=== PATIENT | female | born 1990 | race Caucasian/White ===

== ENCOUNTER 2016-07-27 15:51 | Inpatient (IN) | payer MEDICAID, OTHER ==
[2016-07-27] VITALS (7 sets, daily range): BP systolic 104–145; BP diastolic 58–85; PULSE 99–136; RESP 17–28; TEMP 97.6–99; O2SAT 99–100
[~2016-07-27 15:51] MED LIST: Z.0.NO CURRENT MEDS
[2016-07-27] MEDS ORDERED: SODIUM CHLOR 0.9% 1000 ML INJ 100 ML IV ONE (16:12)
[2016-07-27] MEDS ORDERED: SODIUM CHLOR 0.9% 1000 ML INJ 1,000 ML IV ONE ×2 (16:12)
[2016-07-27 16:37] LABS: AUTOMATED NEUTROPHIL # 4.5 TH/MM3 (1.8-7.7); BASOPHIL % 0.3 % (0.0-2.0); EOSINOPHIL # 0.1 TH/MM3 (0-0.4); EOSINOPHIL % 2.7 % (0.0-4.0); HEMATOCRIT 36.3 % (35.0-46.0); HEMO FLAGS DIFF FINAL; LYMPH % 13.1 % (9.0-44.0); LYMPHOCYTE # 0.7 TH/MM3 (1.0-4.8); MEAN CELL VOLUME 91.5 FL (80.0-100.0); MEAN CORPUSCULAR HEMOGLOBIN 32.9 PG (27.0-34.0); MEAN CORPUSCULAR HGB CONC 35.9 % (32.0-36.0); MONO % 0.4 % (0.0-8.0); NEUT % 83.5 % (16.0-70.0); PLATELET COUNT 176 TH/MM3 (150-450); RED BLOOD COUNT 3.96 MIL/MM3 (4.00-5.30); RED CELL DISTRIBUTION WIDTH 13.8 % (11.6-17.2); WHITE BLOOD COUNT 5.4 TH/MM3 (4.0-11.0)
[2016-07-27 16:50] LABS: BACTERIA, URINE MOD /hpf; BLOOD, URINE SMALL (NEG); GLUCOSE,URINE NEG (NEG); KETONE, URINE NEG (NEG); MUCUS URINE FEW /lpf (OCC); SQUAMOUS EPITHELIAL CELL URINE 1 /hpf (0-5); URINE COLOR YELLOW (YELLW/STRAW)
[2016-07-27 16:53] LABS: COMMENT (UR) CATH-CULTURE IND; CULTURE IF INDICATED CATH CULTURE IND; NITRITE,URINE POS (NEG)
[2016-07-27] MEDS ORDERED: PIPERACIL-TAZO 4.5 GM PREMIX 100 ML IV ONE (17:00)
[2016-07-27 17:03] LABS: ANION GAP 9 MEQ/L (5-15); AST (GOT) 14 U/L (15-37); BICARBONATE 24.2 MEQ/L (21.0-32.0); BLOOD UREA NITROGEN 8 MG/DL (7-18); CHLORIDE 104 MEQ/L (98-107); GLOMERULAR FILTRATION RATE 112 ML/MIN (>89); POTASSIUM 3.7 MEQ/L (3.5-5.1); SODIUM (NA) 137 MEQ/L (136-145)
[2016-07-27 17:07] LABS: ALKALINE PHOSPHATASE 81 U/L (45-117); ALT (GPT) 11 U/L (10-53); TOTAL BILIRUBIN ADULT 0.3 MG/DL (0.2-1.0)
--- NOTE | 2016-07-27 17:12 | PD ---
HPI Chief Complaint: Seizure Time Seen by Provider: 16:08 Travel History International Travel<30 days: No Contact w/Intl Traveler<30days: No Traveled to known affect area: No History of Present Illness HPI 26-year-old female came to the emergency room with history of seizure-like activity that was witnessed by her . This happened as per him about 15- 20 minutes ago. Patient does not have history of seizures. She says she was feeling fine this morning. [place] the [place] she suddenly started to get chills and wanted to go home because she wasn't feeling bad. But she was in the car and was driving she had these shaking episodes were as per him she was not responding. It lasted for about a minute. Patient is 20 weeks and says that she was diagnosed with UTI about 3 days ago but not treated. She has been nauseous but no vomiting. Patient was tachycardic in the triage. She is otherwise a healthy person. No history of cramps or spotting. PFSH Past Medical History Narrative Medical List of her past medical, surgical, social and family history was reviewed from the nursing note. Asthma: Yes Anxiety: Yes Depression: Yes Diabetes: No Diminished Hearing: No Headaches: Yes ?: Menopausal: No : 2 Para: 1 Miscarriage: 1 Past Surgical History Surgical History: No Previous Surgery Social History Alcohol Use: No Tobacco Use: No Substance Use: No Allergies-Medications (Allergen,Severity, Reaction): Coded Allergies: No Known Allergies (Verified , 08/07/11) Comments List of her allergies reviewed from the nursing note. Reported Meds & Prescriptions Reported Meds & Active Scripts Active Reported Mapap (Acetaminophen) 325 Mg Tab 650 Mg PO DAILY PRN Calna ( Vitamin) 1 Tab Tab 1 Tab PO HS Narrative Medication List of her home medications reviewed from the nursing note. Review of Systems Except as stated in HPI: all other systems reviewed are Neg Physical Exam Narrative GENERAL: Awake, alert, anxious, moderate distress SKIN: Focused skin assessment warm/dry. HEAD: Atraumatic. Normocephalic. EYES: Pupils equal and round. No scleral icterus. No injection or drainage. ENT: No nasal bleeding or discharge. Dry mucous membrane NECK: Trachea midline. No JVD. CARDIOVASCULAR: Regular rate and rhythm. Tachycardia. No murmur appreciated. RESPIRATORY: No accessory muscle use. Clear to auscultation. Breath sounds equal bilaterally. GASTROINTESTINAL: Abdomen soft, non-tender, nondistended. Hepatic and splenic margins not palpable. MUSCULOSKELETAL: No obvious deformities. No clubbing. No cyanosis. No edema. NEUROLOGICAL: Awake and alert. No obvious cranial nerve deficits. Motor grossly within normal limits. Normal speech. PSYCHIATRIC: Appropriate mood and affect; insight and judgment normal. Data Data Last Documented VS Vital Signs Date Time Temp Pulse Resp B/P Pulse Ox O2 Delivery O2 Flow Rate FiO2 07/27/16 16:39 99 Room Air 07/27/16 16:38 101 18 106/59 07/27/16 16:08 98.3 Orders Complete Blood Count With Diff (07/27/16 16:12) Comprehensive Metabolic Panel (07/27/16 16:12) Lactic Acid Sepsis Protocol (07/27/16 16:12) Urinalysis - C+S If Indicated (07/27/16 16:12) Blood Culture (07/27/16 16:12) Blood Glucose (07/27/16 16:12) Ecg Monitoring (07/27/16 16:12) Iv Access Insert/Monitor (07/27/16 16:12) Oximetry (07/27/16 16:12) Oxygen Administration (07/27/16 16:12) Sodium Chlor 0.9% 1000 Ml Inj (Ns 1000 M (07/27/16 16:12) Sodium Chlor 0.9% 1000 Ml Inj (Ns 1000 M (07/27/16 16:12) Sodium Chlor 0.9% 1000 Ml Inj (Ns 1000 M (07/27/16 16:12) Urine Culture (07/27/16 16:20) Piperacil-Tazo 4.5 Gm Premix (Zosyn 4.5 (07/27/16 17:00) Admit Order (Ed Use Only) (07/27/16 17:12) Labs Laboratory Tests Test 07/27/16 07/27/16 16:10 16:20 Sodium Level 137 MEQ/L Potassium Level 3.7 MEQ/L Chloride Level 104 MEQ/L Carbon Dioxide Level 24.2 MEQ/L Anion Gap 9 MEQ/L Blood Urea Nitrogen 8 MG/DL Creatinine 0.64 MG/DL Estimat Glomerular Filtration 112 ML/MIN Rate Random Glucose 89 MG/DL Lactic Acid Level 2.1 mmol/L Calcium Level 8.8 MG/DL Total Bilirubin 0.3 MG/DL Aspartate Amino Transf 14 U/L (AST/SGOT) Alanine Aminotransferase 11 U/L (ALT/SGPT) Alkaline Phosphatase 81 U/L Total Protein 6.4 GM/DL Albumin 2.9 GM/DL White Blood Count 5.4 TH/MM3 Red Blood Count 3.96 MIL/MM3 Hemoglobin 13.0 GM/DL Hematocrit 36.3 % Mean Corpuscular Volume 91.5 FL Mean Corpuscular Hemoglobin 32.9 PG Mean Corpuscular Hemoglobin 35.9 % Concent Red Cell Distribution Width 13.8 % Platelet Count 176 TH/MM3 Mean Platelet Volume 8.4 FL Neutrophils (%) (Auto) 83.5 % Lymphocytes (%) (Auto) 13.1 % Monocytes (%) (Auto) 0.4 % Eosinophils (%) (Auto) 2.7 % Basophils (%) (Auto) 0.3 % Neutrophils # (Auto) 4.5 TH/MM3 Lymphocytes # (Auto) 0.7 TH/MM3 Monocytes # (Auto) 0.0 TH/MM3 Eosinophils # (Auto) 0.1 TH/MM3 Basophils # (Auto) 0.0 TH/MM3 CBC Comment DIFF FINAL Differential Comment Urine Color YELLOW Urine Turbidity HAZY Urine pH 6.0 Urine Specific [place] 1.019 Urine Protein 30 mg/dL Urine Glucose (UA) NEG mg/dL Urine Ketones NEG mg/dL Urine Occult Blood SMALL Urine Nitrite POS Urine Bilirubin NEG Urine Urobilinogen LESS THAN 2.0 MG/DL Urine Leukocyte Esterase LARGE Urine RBC 22 /hpf Urine WBC /hpf Urine WBC Clumps MANY Urine Squamous Epithelial 1 /hpf Cells Urine Bacteria MOD /hpf Urine Mucus FEW /lpf Microscopic Urinalysis Comment CATH-CULTURE IND MDM Medical Decision Making Medical Screen Exam Complete: Yes Emergency Medical Condition: Yes Medical Record Reviewed: Yes Differential Diagnosis Sepsis, UTI, new onset seizure Narrative Course 5:03 PM CBC is back which appears to be within acceptable limits. Lactic acid is elevated. UA was strongly positive for UTI. She was given 3 L of fluid initially and I have ordered Zosyn for her as well. I would like to admit her at this point. Given the fact she is 20 weeks I would like her to be admitted under OB care. I spoke with the OB hospitalist Dr. Nunez who has accepted this patient. Critical Care Narrative Aggregate critical care time was 30 minutes. Time to perform other separately billable procedures was not included in the critical care time. My time did not include minutes spent treating any other patients simultaneously or on activities that did not directly contribute to the patient's treatment. The services I provided to this patient were to treat and/or prevent clinically significant deterioration that could result in: Sepsis, sepsis protocol I provided critical care services requiring my management, as noted below: Chart data review, documentation time, medication orders and management, vital sign assessments/reviewing monitor data, ordering and reviewing lab tests, ordering and interpreting/reviewing x-rays and diagnostic studies, care of the patient and discussion of the patient with the admitting physicians. Procedures EKG Prior to Arrival: No Diagnosis Primary Impression: Sepsis Qualified Code: A41.9 - Sepsis, due to unspecified organism Additional Impressions: UTI (urinary tract infection) Qualified Code: N39.0 - Urinary tract infection without hematuria, site unspecified Qualified Code: Z3A.20 - 20 weeks gestation of Admitting Information Admitting Physician Requests: Valarie Manuel MD Jul 27, 2016 17:12
[2016-07-27 18:29] LABS: LACTIC ACID GHOST NOT REPORTABLE
[2016-07-27] MEDS ORDERED: MAPA325T PO (19:21)
[2016-07-27] MEDS ORDERED: CALNTAB PO (19:21)
[2016-07-27] MEDS ORDERED: SODIUM CHLORIDE 0.9% FLUSH 10 ML FLUSH IV FLUSH PRN (20:30)
[2016-07-27] MEDS ORDERED: ALUMINUM/MAGNESIUM/SIMETH 30 ML CUP PO PRN (20:30)
[2016-07-27] MEDS ORDERED: ONDANSETRON HCL 4 MG/2 ML VIAL IV PRN (20:30)
[2016-07-27] MEDS: SODIUM CHLORIDE 0.9% FLUSH 10 ML FLUSH IV FLUSH SCH (21:00)
--- NOTE | 2016-07-27 22:00 | HHI.HP ---
HPI Chief Complaint chills, fever, ?seizure Date Seen: Jul 27, 2016 Time Seen: 19:32 Travel History International Travel<30 Days: No Contact w/Intl Traveler<30Days: No Known Affected Area: No History of Present Illness HPI This is a 26y/o at 19w5d, with LUPE 12/16/16 who was brought to the ED by her due to "seizure like" activity. Per history they were at the mall when pt started feeling "shaking/chills," while in the car her states he noticed she was not immediately responsive and was flailing her arms about. She denies any loss of bladder control. Ms. Lira reports + movements , no vaginal bleeding or leakage of fluid. care with Aslhee Manjarrez, no records available for review, complicated by: 1. recent UTI, no treatment 2. h/o pyelonephritis outside of Para: 1 : 2 Miscarriage: 0 : 0 History Past Medical History Narrative Medical H/o Pyelonephritis in 07/2010 Obstetric History Obstetric History 05/14/2010 40w5d , 7lb8oz "Nidia" Past Surgical History Surgical History: No Previous Surgery Family History Family History: Negative Social History Alcohol Use: No Tobacco Use: No Substance Abuse: No Allergies-Medications (Allergen,Severity, Reaction): Coded Allergies: No Known Allergies (Verified , 08/07/11) Home Meds Reported Medications Acetaminophen (Mapap)325 Mg [id number] Mg PO DAILY PRN (HEADACHE) Ref 0 07/27/16 Vitamin (Calna)1 Tab Tab1 Tab PO HS 07/27/16 Review of Systems Except as stated in HPI: all other systems reviewed are Neg Physical Exam Vital Signs Date Time Temp Pulse Resp B/P Pulse Ox O2 Delivery O2 Flow Rate FiO2 07/27/16 20:45 98.9 127 18 104/58 100 Room Air 07/27/16 17:27 123 20 123/85 99 Room Air 07/27/16 16:39 99 Room Air 07/27/16 16:39 99 Room Air 07/27/16 16:38 101 18 106/59 99 Room Air 07/27/16 16:10 114 18 93 Room Air 07/27/16 16:08 98.3 99 18 145/64 100 07/27/16 15:55 99.0 122 28 99 Room Air Narrative GENERAL: Well-nourished, well-developed patient. SKIN: Warm and dry. HEAD: Normocephalic and atraumatic. EYES: No scleral icterus. No injection or drainage. ENT: No nasal drainage noted. Mucous membranes pink. Airway patent. NECK: Supple, trachea midline. No JVD. CARDIOVASCULAR: Regular rate and rhythm without murmurs, gallops, or rubs. RESPIRATORY: Breath sounds equal bilaterally. No accessory muscle use. BREASTS: Bilateral exam showed no masses , no retractions, no nipple discharge. ABDOMEN/GI: Abdomen soft, non-tender, bowel sounds present, no rebound, no guarding; fundal height 20cm GENITOURINARY: VE deferred] EXTREMITIES: No cyanosis or edema. BACK: Nontender without obvious deformity. No CVA tenderness. NEUROLOGICAL: Awake and alert. Motor and sensory grossly within normal limits. Five out of 5 muscle strength in all muscle groups. Normal speech. No fever, + tachycardia, + lactic acid Data Data Vital Signs Reviewed: Yes Orders Complete Blood Count With Diff (07/27/16 16:12) Comprehensive Metabolic Panel (07/27/16 16:12) Lactic Acid Sepsis Protocol (07/27/16 16:12) Urinalysis - C+S If Indicated (07/27/16 16:12) Blood Culture (07/27/16 16:12) Blood Glucose (07/27/16 16:12) Ecg Monitoring (07/27/16 16:12) Iv Access Insert/Monitor (07/27/16 16:12) Oximetry (07/27/16 16:12) Oxygen Administration (07/27/16 16:12) Sodium Chlor 0.9% 1000 Ml Inj (Ns 1000 M (07/27/16 16:12) Sodium Chlor 0.9% 1000 Ml Inj (Ns 1000 M (07/27/16 16:12) Sodium Chlor 0.9% 1000 Ml Inj (Ns 1000 M (07/27/16 16:12) Urine Culture (07/27/16 16:20) Piperacil-Tazo 4.5 Gm Premix (Zosyn 4.5 (07/27/16 17:00) Admit Order (Ed Use Only) (07/27/16 17:12) Lactic Acid (07/27/16 18:15) Admit To Inpatient (07/27/16 ) Diet Regular Basic (07/27/16 Dinner) Vital Signs (Adult) WILBERT.W3G-DDQSS AWAKE (07/27/16 20:19) Heart WILBERT.QSHIFT (07/27/16 20:19) Activity Oob Ad Gwendolyn (07/27/16 20:19) Acetaminophen (Tylenol) (07/27/16 20:30) Jmjchayj-Bsh-Vzwio-Iron Prenat (Stuartna (07/28/16 09:00) Docusate Sodium (Colace) (07/28/16 09:00) Al-Mag Hy-Si 40-40-4 Mg/Ml Liq (Mag-Al P (07/27/16 20:30) Sodium Chloride 0.9% Flush (Ns Flush) (07/27/16 21:00) Sodium Chloride 0.9% Flush (Ns Flush) (07/27/16 20:30) Ondansetron Inj (Zofran Inj) (07/27/16 20:30) Inpatient Certification (07/27/16 ) Piperacil-Tazo 4.5 Gm Premix (Zosyn 4.5 (07/28/16 00:00) Labs Laboratory Tests Test 07/27/16 07/27/16 07/27/16 16:10 16:20 18:20 White Blood Count 5.4 Red Blood Count 3.96 Hemoglobin 13.0 Hematocrit 36.3 Mean Corpuscular Volume 91.5 Mean Corpuscular Hemoglobin 32.9 Mean Corpuscular Hemoglobin 35.9 Concent Red Cell Distribution Width 13.8 Platelet Count 176 Mean Platelet Volume 8.4 Neutrophils (%) (Auto) 83.5 Lymphocytes (%) (Auto) 13.1 Monocytes (%) (Auto) 0.4 Eosinophils (%) (Auto) 2.7 Basophils (%) (Auto) 0.3 Neutrophils # (Auto) 4.5 Lymphocytes # (Auto) 0.7 Monocytes # (Auto) 0.0 Eosinophils # (Auto) 0.1 Basophils # (Auto) 0.0 CBC Comment DIFF FINAL Differential Comment Sodium Level 137 Potassium Level 3.7 Chloride Level 104 Carbon Dioxide Level 24.2 Anion Gap 9 Blood Urea Nitrogen 8 Creatinine 0.64 Estimat Glomerular Filtration 112 Rate Random Glucose 89 Lactic Acid Level 2.1 1.1 Calcium Level 8.8 Total Bilirubin 0.3 Aspartate Amino Transf 14 (AST/SGOT) Alanine Aminotransferase 11 (ALT/SGPT) Alkaline Phosphatase 81 Total Protein 6.4 Albumin 2.9 Urine Color YELLOW Urine Turbidity HAZY Urine pH 6.0 Urine Specific [place] 1.019 Urine Protein 30 Urine Glucose (UA) NEG Urine Ketones NEG Urine Occult Blood SMALL Urine Nitrite POS Urine Bilirubin NEG Urine Urobilinogen LESS THAN 2.0 Urine Leukocyte Esterase LARGE Urine RBC 22 Urine WBC Urine WBC Clumps MANY Urine Squamous Epithelial 1 Cells Urine Bacteria MOD Urine Mucus FEW Microscopic Urinalysis Comment CATH-CULTURE IND Date/Time Procedure Status Source Growth 07/27/16 16:20 Urine Culture Received Urine Catheterized Urine Pending 07/27/16 16:19 Aerobic Blood Culture Received Blood Peripheral Pending 07/27/16 16:19 Anaerobic Blood Culture Received Blood Peripheral Pending Assessment/Plan Problem List: (1) Sepsis (2) UTI (urinary tract infection) (3) Assessment and Plan This is a 26y/o at 19w5d with urosepsis. -admit for IV antibiotics -Doppler q shift -IV zosyn -tylenol for pain -blood and urine culture pending -will need at least 14 days of oral antibiotics at d/c based on urine culture results Discharge Planning D/c in 1-2 days Natalie Black MD Jul 27, 2016 22:00
[2016-07-27] MEDS: PIPERACIL-TAZO 4.5 GM PREMIX 100 ML IV SCH (23:58)
[2016-07-28] VITALS: BP 97/50; PULSE 120; RESP 16; TEMP 98; O2SAT 98
[2016-07-28 04:00] VITALS: BP 90/52; PULSE 105; RESP 16; TEMP 96.6; O2SAT 97
[2016-07-28] MEDS: PIPERACIL-TAZO 4.5 GM PREMIX 100 ML IV SCH ×3 (05:57→18:10)
[2016-07-28 08:00] VITALS: BP 94/55; PULSE 91; RESP 15; TEMP 98; O2SAT 100
[2016-07-28] MEDS ORDERED: MULTIVIT/MIN/PREN/FOL AC/IRON PRENATAL TAB PO SCH (09:00)
[2016-07-28] MEDS ORDERED: DOCUSATE SODIUM 100 MG CAP PO SCH (09:00)
[2016-07-28] MEDS: SODIUM CHLORIDE 0.9% FLUSH 10 ML FLUSH IV FLUSH SCH ×2 (09:00→18:12)
--- NOTE | 2016-07-28 09:57 | PD.OB.ANTE ---
Subjective Diagnosis: (1) Sepsis Diagnosis: Principal (2) UTI (urinary tract infection) Diagnosis: Principal (3) Interval History GARNETT FEEDER antepartum Note HD#2 This is a 26y/o , LUPE 12/16/16 at 19w6d with urosepsis with maternal tachycardia and elevated lactic acid. She was started on Zosyn. Overnight she tolerated a regular diet with pulse now in the 90's. S: Pt states she is feeling significantly better, good appetite. Objective Vital Signs Vital Signs Date Time Temp Pulse Resp B/P Pulse Ox O2 Delivery O2 Flow Rate FiO2 07/28/16 08:00 98.0 91 15 94/55 100 07/28/16 04:00 96.6 105 16 90/52 97 07/28/16 00:00 98.0 120 16 97/50 98 07/27/16 22:30 97.6 136 17 113/59 99 07/27/16 20:45 98.9 127 18 104/58 100 Room Air 07/27/16 17:27 123 20 123/85 99 Room Air 07/27/16 16:39 99 Room Air 07/27/16 16:39 99 Room Air 07/27/16 16:38 101 18 106/59 99 Room Air 07/27/16 16:10 114 18 93 Room Air 07/27/16 16:08 98.3 99 18 145/64 100 07/27/16 15:55 99.0 122 28 99 Room Air Intake & Output 07/28/16 07/28/16 07:00 19:00 Intake Total 602 ml Balance 602 ml Intake Oral 480 ml IV Total 122 ml # Voids 2 Lab & Micro Results Test 07/27/16 07/27/16 07/27/16 16:10 16:20 18:20 White Blood Count 5.4 TH/MM3 Red Blood Count 3.96 MIL/MM3 Hemoglobin 13.0 GM/DL Hematocrit 36.3 % Mean Corpuscular Volume 91.5 FL Mean Corpuscular Hemoglobin 32.9 PG Mean Corpuscular Hemoglobin 35.9 % Concent Red Cell Distribution Width 13.8 % Platelet Count 176 TH/MM3 Mean Platelet Volume 8.4 FL Neutrophils (%) (Auto) 83.5 % Lymphocytes (%) (Auto) 13.1 % Monocytes (%) (Auto) 0.4 % Eosinophils (%) (Auto) 2.7 % Basophils (%) (Auto) 0.3 % Neutrophils # (Auto) 4.5 TH/MM3 Lymphocytes # (Auto) 0.7 TH/MM3 Monocytes # (Auto) 0.0 TH/MM3 Eosinophils # (Auto) 0.1 TH/MM3 Basophils # (Auto) 0.0 TH/MM3 CBC Comment DIFF FINAL Differential Comment Sodium Level 137 MEQ/L Potassium Level 3.7 MEQ/L Chloride Level 104 MEQ/L Carbon Dioxide Level 24.2 MEQ/L Anion Gap 9 MEQ/L Blood Urea Nitrogen 8 MG/DL Creatinine 0.64 MG/DL Estimat Glomerular Filtration 112 ML/MIN Rate Random Glucose 89 MG/DL Lactic Acid Level 2.1 mmol/L 1.1 mmol/L Calcium Level 8.8 MG/DL Total Bilirubin 0.3 MG/DL Aspartate Amino Transf 14 U/L (AST/SGOT) Alanine Aminotransferase 11 U/L (ALT/SGPT) Alkaline Phosphatase 81 U/L Total Protein 6.4 GM/DL Albumin 2.9 GM/DL Urine Color YELLOW Urine Turbidity HAZY Urine pH 6.0 Urine Specific [place] 1.019 Urine Protein 30 mg/dL Urine Glucose (UA) NEG mg/dL Urine Ketones NEG mg/dL Urine Occult Blood SMALL Urine Nitrite POS Urine Bilirubin NEG Urine Urobilinogen LESS THAN 2.0 MG/DL Urine Leukocyte Esterase LARGE Urine RBC 22 /hpf Urine WBC /hpf Urine WBC Clumps MANY Urine Squamous Epithelial 1 /hpf Cells Urine Bacteria MOD /hpf Urine Mucus FEW /lpf Microscopic Urinalysis Comment CATH-CULTURE IND Date/Time Procedure Status Source Growth 07/27/16 16:20 Urine Culture Received Urine Catheterized Urine Pending 07/27/16 16:19 Aerobic Blood Culture Received Blood Peripheral Pending 07/27/16 16:19 Anaerobic Blood Culture Received Blood Peripheral Pending Physical Exam GENERAL: Well-nourished, well-developed patient. CARDIOVASCULAR: Regular rate and rhythm without murmurs, gallops, or rubs. RESPIRATORY: Breath sounds equal bilaterally. No accessory muscle use. ABDOMEN/GI: Abdomen soft, non-tender. GENITOURINARY: External Genitalia: deferred EXTREMITIES: No cyanosis or edema, non-tender, without signs of DVT. Assessment and Plan Problem List: (1) Sepsis Status: Acute (2) UTI (urinary tract infection) Status: Acute (3) Status: Acute Assessment and Plan This is a 26y/o at 19w5d with urosepsis. -tachycardia has resolved -blood and urine cultures pending -continue IV antibiotics, Zosyn, until at least 24hrs -Doppler q shift -IV zosyn -tylenol for pain -Pt expressed desire to leave, will consider based on blood/urine prelim results later today if possible -will need at least 14 days of oral antibiotics at d/c based on urine culture results Natalie Black MD Jul 28, 2016 09:57
[2016-07-28 12:00] VITALS: BP 94/53; PULSE 92; RESP 15; TEMP 97.8; O2SAT 99
[2016-07-28] MEDS: ACETAMINOPHEN 325 MG TAB PO PRN ×2 (16:03→22:11)
[2016-07-28 20:00] VITALS: BP 107/58; PULSE 98; RESP 17; TEMP 97.3; O2SAT 99
[2016-07-29] MEDS ORDERED: MACR100C2 PO (13:00)
== END 2016-07-28 23:00 | disposition left against medical advice (07) | DRG 781 ==
LOC: NEPE 15:51 → NEDA 17:13 → HOCB 22:30
PROVIDERS: ADMIT Obstetrics & Gynecology; ATTEND Obstetrics & Gynecology
DX: O98.812 Other maternal infectious and parasitic diseases complicating pregnancy, second trimester (principal); O23.42 Unspecified infection of urinary tract in pregnancy, second trimester; Z3A.19 19 weeks gestation of pregnancy
CPT/HCPCS: 80053; 81001; 83605; 85025; 87040; 87077; 87086; 87186; 87205; 96360; J2543; J7030

== ENCOUNTER 2016-07-29 12:20 | Emergency (ER) | payer MEDICAID ==
[~2016-07-29 12:20] MED LIST changes: +CALNTAB PO; +MAPA325T PO; -Z.0.NO CURRENT MEDS
[2016-07-29] MEDS ORDERED: MACR100C2 PO (13:00)
--- NOTE | 2016-07-29 13:17 | PD ---
HPI Chief Complaint told to return by OB provider (Gabriele Fitzpatrick MD R2) Travel History International Travel<30 Days: No Contact w/Intl Traveler<30Days: No Known Affected Area: No (Gabriele Fitzpatrick MD R2) History of Present Illness HPI Ms. Lira is a 26 yo at 20 weeks (LUPE 12/18/2016) who presents at request of OB provider Ashlee Manjarrez after left AMA 07/28. [Per EMR, patient admitted 07/27 for "shaking" and "seizure like" activity; patient found to be tachycardic to 122 BPM with Lactic acid 2.1 and UA suggestive of UTI (leuk +, nitrites +, mod bacteria). Patient started empirically on Zosyn. Blood cultures and urine cultures x1 positive for Escherichia coli resistant to ampicillin and Unasyn. Patient received 4 doses of Zosyn while hospitalized] Per patient, she left after being told her daughter could not stay at the hospital. Since being discharged, patient states that she has been improved. She has had a headache controlled with Tylenol. Patient does not report urinary symptoms, back pain, fever/chills, shaking or seizure activity, or other symptoms. Patient reports she has felt decreased movement several days. Para: 1 : 2 (Gabriele Fitzpatrick MD R2) History Past Medical History Narrative Medical Pyelonephritis (2010) (Gabriele Fitzpatrick MD R2) Obstetric History Obstetric History 05/14/2010 40w5d , 7lb8oz F (Gabriele Fitzpatrick MD R2) Past Surgical History Surgical History: No Previous Surgery (Gabriele Fitzpatrick MD R2) Family History Narrative Family History Father- DM (Gabriele Fitzpatrick MD R2) Social History Alcohol Use: No Tobacco Use: No Substance Abuse: No (Gabriele Fitzpatrick MD R2) Allergies-Medications (Allergen,Severity, Reaction): Coded Allergies: No Known Allergies (Verified , 08/07/11) Home Meds Active Scripts Nitrofurantoin Monohydrate Macrocrystals (Macrobid)100 Mg [id number] Mg PO BID 7 Days Ref 0 Prov:Gema Berrios MD 07/29/16 Reported Medications Acetaminophen (Mapap)325 Mg [id number] Mg PO DAILY PRN (HEADACHE) Ref 0 07/27/16 Vitamin (Calna)1 Tab Tab1 Tab PO HS 07/27/16 Review of Systems General / Constitutional: No: Fever, Chills Eyes: No: Blurred Vision HENT: Headaches (better with Tylenol) Cardiovascular: No: Chest Pain or Discomfort Respiratory: No: Short of Breath Gastrointestinal: No: Vomiting Genitourinary: No: Urgency, Dysuria (Gabriele Fitzpatrick MD R2) Physical Exam BP 107/56 HR 97 T 98.1 RR 18 Narrative GENERAL: Well-nourished, well-developed patient. SKIN: Warm and dry. HEAD: Normocephalic and atraumatic. EYES: No scleral icterus. No injection or drainage. ENT: No nasal drainage noted. Mucous membranes pink. Airway patent. NECK: Supple, trachea midline. No JVD. CARDIOVASCULAR: Tachycardic, regular rhythm without murmurs. Normal perfusion RESPIRATORY: Breath sounds equal bilaterally. No accessory muscle use. ABDOMEN/GI: Abdomen soft, non-tender, bowel sounds present, no rebound, no guarding Gravid Back: No CVA tenderness EXTREMITIES: No cyanosis or edema. BACK: Nontender without obvious deformity. No CVA tenderness. NEUROLOGICAL: Awake and alert. Motor and sensory function grossly within normal limits. (Gabriele Fitzpatrick MD R2) Data Data Vital Signs Reviewed: Yes (Gabriele Fitzpatrick MD R2) MDM Medical Record Reviewed: Yes Narrative Course / MDM 26 yo at 20 weeks (LUPE 12/18/2016) -Recent bacteremia/UTI with Escherichia coli sensitive to Macrobid -Asymptomatic at this time -PMH Pyelonephritis Plan: We'll prescribe Macrobid x1 week Frequent hydration encouraged Patient highly encouraged to return to ED with any fever/chills, symptoms of malaise, dysuria, or other concerning symptoms for worsening infection (Gabriele Fitzpatrick MD R2) Diagnosis Diagnosis: Primary Impression: UTI (urinary tract infection) Additional Impression: History of bacteremia Disposition: 01 DISCHARGE HOME Condition: Stable Scripts Nitrofurantoin Monohydrate Macrocrystals (Macrobid)100 Mg [id number] Mg PO BID 7 Days Ref 0 Prov:Gema Berrios MD 07/29/16 Patient Instructions: General Instructions, Early Labor Signs (ED), Movement (ED), Urinary Tract Infection in (ED) Departure Forms: Tests/Procedures Attestation FHTs 140s. Patient seen and examined. Rx for UTI given- Macrobid 100mg bid. F /u with OB provider closely. All questions answered. (Gema Berrios MD) Gabriele Fitzpatrick MD R2 Jul 29, 2016 13:17 Gema Berrios MD Jul 29, 2016 14:48
== END 2016-07-29 13:00 | disposition home or self-care (01) ==
LOC: HOBED 12:20
DX: O23.42 Unspecified infection of urinary tract in pregnancy, second trimester (principal); Z3A.20 20 weeks gestation of pregnancy
CPT/HCPCS: 99283

== ENCOUNTER 2016-12-23 19:01 | Inpatient (IN) | payer MEDICAID ==
[~2016-12-23] VITALS: Ht 162.6 cm; Wt 83.5 kg
[2016-12-23] VITALS (33 sets, daily range): BP systolic 82–136; BP diastolic 41–102; PULSE 82–188; RESP 20; TEMP 98–98.3
[~2016-12-23 19:01] MED LIST changes: +DIPHTH/TETANUS/ACEL PERTUSSIS (BOOSTER) 0.5 ML VIAL/PFS IM ONE; +MACR100C2 PO; +MEASLES, MUMPS, RUBELLA VACCINE 0.5 ML VIAL SQ ONE
[2016-12-23] MEDS ORDERED: LIDOCAINE HCL 1% 50 ML VIAL I-DERMAL PRN (19:30)
[2016-12-23] MEDS ORDERED: MINERAL OIL 10 ML VIAL TOPICAL PRN (19:30)
[2016-12-23] MEDS ORDERED: NS 500 ML BOLUS IV PRN (19:30)
[2016-12-23] MEDS ORDERED: NS 1000 ML IV PRN (19:30)
[2016-12-23] MEDS ORDERED: ONDANSETRON HCL 4 MG/2 ML VIAL IV PRN (19:30)
[2016-12-23] MEDS ORDERED: OXYTOCIN 30 UNITS 500ML PREMIX IV ONE (19:30)
[2016-12-23] MEDS ORDERED: LACTATED RINGER'S 1000 ML BOLUS IV PRN (19:30)
[2016-12-23] MEDS ORDERED: LIDOCAINE HCL 1% 50 ML VIAL INFIL PRN (19:30)
[2016-12-23] MEDS ORDERED: CITRIC ACID-SODIUM CITRATE LIQ 30 ML UDC PO SCH (19:30)
[2016-12-23 19:31] LABS: AUTOMATED NEUTROPHIL # 14.4 TH/MM3 (1.8-7.7); BASOPHIL % 0.2 % (0.0-2.0); EOSINOPHIL % 0.2 % (0.0-4.0); HEMO FLAGS DIFF FINAL; LYMPH % 9.3 % (9.0-44.0); LYMPHOCYTE # 1.6 TH/MM3 (1.0-4.8); MEAN CELL VOLUME 94.5 FL (80.0-100.0); MEAN CORPUSCULAR HEMOGLOBIN 31.9 PG (27.0-34.0); MEAN CORPUSCULAR HGB CONC 33.8 % (32.0-36.0); MONO % 5.7 % (0.0-8.0); NEUT % 84.6 % (16.0-70.0); PLATELET COUNT 196 TH/MM3 (150-450); RED BLOOD COUNT 4.34 MIL/MM3 (4.00-5.30); RED CELL DISTRIBUTION WIDTH 14.2 % (11.6-17.2); WHITE BLOOD COUNT 17.1 TH/MM3 (4.0-11.0)
--- NOTE | 2016-12-23 19:32 | HHI.HP ---
HPI Chief Complaint painful labor Date Seen: Dec 23, 2016 Time Seen: 19:35 Travel History International Travel<30 Days: No Contact w/Intl Traveler<30Days: No History of Present Illness HPI Pt is a 26 y/o at 40/5 weeks presents after painful labor at home with Ashlee Manjarrez. She states she was laboring at home and thought her progression was delayed at 5cm. Also, having worsening pain with contractions. Endorses gush of fluids around 4pm this afternoon. Some vaginal bleeding after rupture of membranes. Endorses good movement. Having regular contractions. Denies any chest pain, SOB, leg pain. She is requesting an epidural. Denies any problems during this . Weeks Gestation: 40 Para: 1 : 3 Miscarriage: 1 History Past Medical History Medical History: Denies Significant Hx Obstetric History Obstetric History 1st -miscarriage 2nd - at 40 weeks Past Surgical History Surgical History: No Previous Surgery Family History Family History: Negative Social History Alcohol Use: No Tobacco Use: No Substance Abuse: No Allergies-Medications (Allergen,Severity, Reaction): Coded Allergies: No Known Allergies (Verified , 08/07/11) Home Meds Active Scripts Nitrofurantoin Monohydrate Macrocrystals (Macrobid) 100 Mg Cap, 100 MG PO BID for Infection for 7 Days, CAP 0 Refills Prov:Gema Berrios MD 07/29/16 Reported Medications Acetaminophen (Mapap) 325 Mg Tab, 650 MG PO DAILY Y for HEADACHE, TAB 0 Refills 07/27/16 Vitamin (Calna) 1 Tab Tab, 1 TAB PO HS 07/27/16 Review of Systems Except as stated in HPI: all other systems reviewed are Neg General / Constitutional: Weight Gain, No: Fever Eyes: No: Blurred Vision HENT: No: Headaches Cardiovascular: No: Irregular Rhythm, Chest Pain or Discomfort Respiratory: No: Cough, Short of Breath Gastrointestinal: No: Nausea, Vomiting Genitourinary: No: Urgency, Frequency, Dysuria Musculoskeletal: No: Limited ROM, Weakness Skin: No Rash, No Itching Neurologic: No: Weakness, Dizziness Psychiatric: No: Anxiety, Depression Physical Exam Vital Signs Date Time Temp Pulse Resp B/P (MAP) Pulse Ox O2 Delivery O2 Flow Rate FiO2 12/23/16 19:27 20 12/23/16 19:25 102 12/23/16 19:22 126/81 (96) Narrative GENERAL: Well-nourished, well-developed patient. SKIN: Warm and dry. HEAD: Normocephalic and atraumatic. EYES: No scleral icterus. No injection or drainage. ENT: No nasal drainage noted. Mucous membranes pink. Airway patent. NECK: Supple, trachea midline. No JVD. CARDIOVASCULAR: Regular rate and rhythm without murmurs, gallops, or rubs. RESPIRATORY: Breath sounds equal bilaterally. No accessory muscle use. BREASTS: Bilateral exam showed no masses , no retractions, no nipple discharge. ABDOMEN/GI: Abdomen soft, non-tender, bowel sounds present, no rebound, no guarding Gravid to 40 weeks size GENITOURINARY: Cervix: soft Dilatation: 5 Effacement: 90 Station: 0 Presentation: vertex Membranes: ruptured Uterine Contractions: q3 minutes FHT's: Category: 1 Baseline: 130 Reactive: yes Variability: moderate Decels: variable EXTREMITIES: No cyanosis or edema. BACK: Nontender without obvious deformity. No CVA tenderness. NEUROLOGICAL: Awake and alert. Motor and sensory grossly within normal limits. Five out of 5 muscle strength in all muscle groups. Normal speech. Caprini VTE Risk Assessment Caprini VTE Risk Assessment: No/Low Risk (score <= 1) Caprini Risk Assessment Model Point Value = 1 Point Value = 2 Point Value = 3 Point Value = 5 Age 41-60 Minor surgery BMI > 25 kg/m2 Swollen legs Varicose veins or History of unexplained or recurrent spontaneous Oral contraceptives or hormone replacement Sepsis (< 1 month) Serious lung disease, including pneumonia (< 1 month) Abnormal pulmonary function Acute myocardial infarction Congestive heart failure (< 1 month) History of inflammatory bowel disease Medical patient at bed rest Age 61-74 Arthroscopic surgery Major open surgery (> 45 min) Laparoscopic surgery (> 45 min) Malignancy Confined to bed (> 72 hours) Immobilizing plaster cast Central venous access Age >= 75 History of VTE Family history of VTE Factor V Leiden Prothrombin [id number] Lupus anticoagulant Anticardiolipin antibodies Elevated serum homocysteine Heparin-induced thrombocytopenia Other congenital or acquired thrombophilia Stroke (< 1 month) Elective arthroplasty Hip, pelvis, or leg fracture Acute spinal cord injury (< 1 month) Prophylaxis Regimen Total Risk Factor Score Risk Level Prophylaxis Regimen 0-1 Low Early ambulation 2 Moderate Order ONE of the following: *Sequential Compression Device (SCD) *Heparin 5000 units SQ BID 3-4 Higher Order ONE of the following medications: *Heparin 5000 units SQ TID *Enoxaparin/Lovenox 40 mg SQ daily (WT < 150 kg, CrCl > 30 mL/min) *Enoxaparin/Lovenox 30 mg SQ daily (WT < 150 kg, CrCl > 10-29 mL/min) *Enoxaparin/Lovenox 30 mg SQ BID (WT < 150 kg, CrCl > 30 mL/min) AND/OR *Sequential Compression Device (SCD) 5 or more Highest Order ONE of the following medications: *Heparin 5000 units SQ TID (Preferred with Epidurals) *Enoxaparin/Lovenox 40 mg SQ daily (WT < 150 kg, CrCl > 30 mL/min) *Enoxaparin/Lovenox 30 mg SQ daily (WT < 150 kg, CrCl > 10-29 mL/min) *Enoxaparin/Lovenox 30 mg SQ BID (WT < 150 kg, CrCl > 30 mL/min) AND *Sequential Compression Device (SCD) Data Data Vital Signs Reviewed: Yes Orders Orders Admit To Inpatient (12/23/16 ) Code Status (12/23/16 19:19) Vital Signs (Adult) .Per protocol (12/23/16 19:19) Activity Oob Ad Gwendolyn (12/23/16 19:19) Heart (12/23/16 19:19) Amnioinfusion (12/23/16 19:19) Urinary Catheter Management .ONCE (12/23/16 19:19) Diet Liquid (12/23/16 Dinner) Complete Blood Count With Diff (12/23/16 19:19) Hold Clot (12/23/16 19:19) Abo/Rh Blood Type (12/23/16 19:19) Urinalysis - C+S If Indicated (12/23/16 19:19) Resp Oxygen Non Rebreathe Mask (12/23/16 ) ^ Epidural / Intrathecal Infus (12/23/16 19:19) Specimen To Be Collected PRN (12/23/16 19:19) Lactated Ringer's 1000 Ml Inj (Lr 1000 M (12/23/16 19:30) Lactated Ringer's 1000 Ml Inj (Lr 1000 M (12/23/16 19:30) Sodium Chlorid 0.9% 500 Ml Inj (Ns 500 M (12/23/16 19:30) Sodium Chlor 0.9% 1000 Ml Inj (Ns 1000 M (12/23/16 19:30) Lidocaine 1% Inj (50 Ml) (Xylocaine 1% I (12/23/16 19:30) Citric Acid-Sodium Citrate Liq (Bicitra (12/23/16 19:30) Ondansetron Inj (Zofran Inj) (12/23/16 19:30) Fentanyl Inj (Fentanyl Inj) (12/23/16 19:30) Fentanyl Inj (Fentanyl Inj) (12/23/16 19:30) Oxytocin 30 Units-500ml Premix (Pitocin (12/23/16 19:30) Lidocaine 1% Inj (50 Ml) (Xylocaine 1% I (12/23/16 19:30) Light Mineral Oil (Muri-Lube Oil) (12/23/16 19:30) Group B Strep: Negative Labs Laboratory Tests Test 12/23/16 19:15 Assessment/Plan Problem List: (1) ICD Codes: Z33.1 - state, incidental Status: Acute Qualifiers: Qualified Codes: Z3A.40 - 40 weeks gestation of Plan: 26 y/o at 40/5 weeks presents from laboring at home Category 1 FHT Cervical exam: / GBS negative 1. IUP -Pt requesting epidural -IUPC -Augment with pitocin -Expectant management -Plan for vaginal delivery Kumar Fry MD, R2 Dec 23, 2016 19:32
[2016-12-23] MEDS ORDERED: fentaNYL 2MCG-BUPIV 0.125% INJ 100 ML ONE (19:35)
[2016-12-23] MEDS ORDERED: ePHEDrine/NS 25 MG/5 ML SYR ONE (19:51)
[2016-12-23] MEDS ORDERED: DO NOT ADMINISTER ANTICOAGULANTS PRN (20:30)
[2016-12-23] MEDS ORDERED: fentaNYL 2MCG-BUPIV 0.125% 100 ML EPIDURAL SCH (20:30)
[2016-12-23] MEDS ORDERED: NO SYSTEM NARCOTICS PRN (20:30)
[2016-12-23] MEDS ORDERED: ePHEDrine/NS 25 MG/5 ML SYR IV PRN (20:30)
[2016-12-23] MEDS ORDERED: OXYTOCIN 30 UNITS-500ML PREMIX 500 ML IV SCH ×2 (20:30→23:45)
[2016-12-23] MEDS: LACTATED RINGER'S 1000 ML IV SCH ×2 (20:39→20:46)
[2016-12-23] MEDS ORDERED: ALUMINUM/MAGNESIUM/SIMETH 30 ML CUP PO PRN (23:45)
[2016-12-23] MEDS ORDERED: oxyCODONE/ACETAMINOPHEN 5 MG/325 MG TAB PO PRN ×2 (23:45)
[2016-12-23] MEDS ORDERED: ONDANSETRON ODT 4 MG TAB PO PRN (23:45)
[2016-12-23] MEDS ORDERED: BENZOCAINE 20% TOPICAL SPRAY 60 ML CAN TOPICAL PRN (23:45)
[2016-12-23] MEDS ORDERED: ZOLPIDEM TARTRATE 5 MG TAB PO PRN (23:45)
[2016-12-23] MEDS ORDERED: WITCH HAZEL 50%/GLYCERIN 12.5% 40 PAD JAR TOPICAL PRN (23:45)
[2016-12-23] MEDS ORDERED: SODIUM CHLORIDE 0.9% FLUSH 10 ML FLUSH IV FLUSH PRN (23:45)
[2016-12-23] MEDS ORDERED: DOCUSATE SODIUM 50 MG/SENNA 8.6 MG TAB PO PRN (23:45)
--- NOTE | 2016-12-23 23:59 | PD.OB.DELI ---
Weeks gestation: 40 Gest age assessed date: Dec 23, 2016 Gest age assessed time: 20:00 Pt started active labor?: Yes Medical induction of labor?: No Artificial rupture of membrane: No Anesthesia: Epidural Episiotomy: None Vaginal Delivery: Normal, Spontaneous Presentation: Occiput anterior, Vertex Nuchal Cord: None Delayed cord clamping (45 sec): Yes Infant: Male Delivery date: Dec 23, 2016 Delivery time: 23:19 One Minute : 9 Five Minute : 9 Placenta: Spontaneous delivery, Intact, 3 vessel cord Laceration: Vaginal laceration, 1 deg Repair: Chromic running Estimated blood loss: 400ml Additional Information Patient is a 26-year-old at 40 weeks and 5 days. Patient vaginally delivered a baby boy at 23:19 on December 23, 2016. Delivery was spontaneous without complications. A small 1 vaginal laceration was repaired following delivery. Of note, patient requests to take placenta home. Patient was informed that ingestion of placenta is not recommended by [facility] at this time. Sera Stern MD R1 Dec 23, 2016 23:59
[2016-12-24] VITALS (8 sets, daily range): BP systolic 99–115; BP diastolic 50–69; PULSE 76–103; RESP 16–20; TEMP 97.9–98.1; O2SAT 98
[2016-12-24] MEDS: ACETAMINOPHEN 325 MG TAB PO PRN ×2 (07:28→14:08)
[2016-12-24] MEDS ORDERED: SODIUM CHLORIDE 0.9% FLUSH 10 ML FLUSH IV FLUSH SCH (09:00)
--- NOTE | 2016-12-24 11:38 | HHI.OB ---
Subjective Post Day: 1 Remarks Pt seen and examined this morning. day #1 AFVSS overnight. Decreased lochia. Denies dysuria. No breast tenderness. She is feeding the baby via breast. Appetite good. No nausea or vomiting. Patient has not yet had a bowel movement, but endorses bowel gas. Ambulating well. Denies calf pain or shortness of breath. Otherwise, she is doing well this morning and has no other concerns. Objective Vitals/I&O Vital Signs Date Time Temp Pulse Resp B/P (MAP) Pulse Ox O2 Delivery O2 Flow Rate FiO2 12/24/16 08:34 98.1 76 18 115/61 (79) 12/24/16 01:45 104/63 (77) 12/24/16 01:45 98.1 96 18 12/24/16 00:38 98.0 20 12/24/16 00:30 20 12/24/16 00:30 96 102/64 (77) 12/24/16 00:15 103 99/50 (66) 12/24/16 00:14 20 12/24/16 00:01 87 107/63 (78) 12/23/16 23:59 20 12/23/16 23:46 115 114/55 (74) 12/23/16 23:45 20 12/23/16 23:34 98.2 12/23/16 23:32 119 12/23/16 23:32 121/72 (88) 12/23/16 22:45 105 102/45 (64) 12/23/16 22:30 98.0 12/23/16 22:30 102 89/43 (58) 12/23/16 22:30 20 12/23/16 22:15 100 90/41 (57) 12/23/16 22:00 112 89/50 (63) 12/23/16 21:45 103 118/74 (89) 12/23/16 21:30 114/102 (106) 12/23/16 21:30 20 12/23/16 21:15 146 99/48 (65) 12/23/16 21:06 82 110/72 (85) 12/23/16 20:47 20 12/23/16 20:45 188 104/61 (75) 12/23/16 20:41 118 12/23/16 20:41 94/46 (62) 12/23/16 20:36 105 97/44 (61) 12/23/16 20:31 106 84/64 (71) 12/23/16 20:30 98.3 20 12/23/16 20:16 111 136/78 (97) 12/23/16 20:10 115 12/23/16 20:05 106 123/69 (87) 12/23/16 20:00 126 106/67 (80) 12/23/16 19:55 108 116/63 (80) 12/23/16 19:51 82/44 (57) 12/23/16 19:50 119 12/23/16 19:50 104 12/23/16 19:45 101 119/64 (82) 12/23/16 19:41 103 12/23/16 19:41 99/76 (84) 12/23/16 19:40 108 12/23/16 19:38 113/85 (94) 12/23/16 19:27 20 12/23/16 19:25 102 12/23/16 19:22 126/81 (96) Objective Remarks GENERAL: Well-nourished, well-developed patient. CARDIOVASCULAR: Regular rate and rhythm without murmurs, gallops, or rubs. RESPIRATORY: Breath sounds equal bilaterally. No accessory muscle use. ABDOMEN/GI: Abdomen soft, non-tender. Fundus: Firm, non-tender at umbilicus. GENITOURINARY: Light to moderate bleeding. EXTREMITIES: No cyanosis or edema, non-tender, without signs of DVT. Medications and IVs Current Medications Medications (Trade) Dose Ordered Sig/Justice Route Start Time Stop Time Status Last Admin Lactated Ringer's 1,000 ml @ 125 mls/hr Q8H IV 12/23/16 19:30 12/23/16 20:46 Lactated Ringer's 1,000 ml @ 3,000 mls/hr BOLUS PRN IV 12/23/16 19:30 12/23/16 20:39 Sodium Chloride 500 ml @ 1,000 mls/hr BOLUS PRN IV 12/23/16 19:30 Sodium Chloride 1,000 ml @ 100 mls/hr Q10H PRN IV 12/23/16 19:30 (Xylocaine 1% Inj (50 ml)) 0.1 ml UNSCH X1 PRN I-DERMAL 12/23/16 19:30 01/06/17 19:29 (Bicitra Liq) 30 ml COLOR ARTIST PO 12/23/16 19:30 12/26/16 19:29 (Zofran Inj) 4 mg Q6H PRN IV 12/23/16 19:30 (fentaNYL INJ) 50 mcg Q1H PRN IV PUSH 12/23/16 19:30 (fentaNYL INJ) 100 mcg Q1H PRN IV PUSH 12/23/16 19:30 (Xylocaine 1% Inj (50 ml)) 10 ml UNSCH X1 PRN INFIL 12/23/16 19:30 01/06/17 19:29 (Muri-Lube Oil) 10 ml UNSCH PRN TOPICAL 12/23/16 19:30 Miscellaneous Information No systemic narcotics to be given except... UNSCH PRN .XX 12/23/16 20:30 12/24/16 20:29 Miscellaneous Information DO NOT ADMINISTER ANY ANTICOAGUL... UNSCH PRN .XX 12/23/16 20:30 12/24/16 20:29 Fentanyl/ Bupivacaine HCl 100 ml @ 0 mls/hr TITRATE EPIDURAL 12/23/16 20:30 (ePHEDrine/NS 25 MG/5 ML SYR) 10 mg UNSCH PRN IV 12/23/16 20:30 12/24/16 20:29 Oxytocin 500 ml @ 0 mls/hr TITRATE IV 12/23/16 20:30 12/23/16 20:45 (NS Flush) 2 ml BID IV FLUSH 12/24/16 09:00 (NS Flush) 2 ml UNSCH PRN IV FLUSH 12/23/16 23:45 (Tylenol) 650 mg Q4H PRN PO 12/23/16 23:45 12/24/16 07:28 (Motrin) 600 mg Q6H PRN PO 12/23/16 23:45 (Percocet 5-325 Mg) 1 tab Q4H PRN PO 12/23/16 23:45 (Percocet 5-325 Mg) 2 tab Q4H PRN PO 12/23/16 23:45 (Americaine 20% Top Spr) 1 spray Q4H PRN TOPICAL 12/23/16 23:45 12/24/16 07:28 (Tucks Pads) 1 applic QID PRN TOPICAL 12/23/16 23:45 12/24/16 07:28 (Lorena-Colace) 2 tab Q12H PRN PO 12/23/16 23:45 (Ambien) 5 mg HS PRN PO 12/23/16 23:45 (Mag-Al Plus Susp Liq) 15 ml Q8H PRN PO 12/23/16 23:45 (Zofran Odt) 4 mg Q6H PRN PO 12/23/16 23:45 Assessment/Plan Problem List: (1) ICD Codes: Z33.1 - state, incidental Status: Acute Qualifiers: Qualified Codes: Z3A.40 - 40 weeks gestation of Plan: 26 y/o female who is day # 1 s/p . -Continue routine care. -Tylenol PRN pain. -Encouraged OOB. Advised pelvic rest for 6 wks. -Re: ctrl, she would like to discuss her options at her follow-up appointment. -Anticipate discharge tomorrow, 12/25, as baby will need to stay at least 24 hours for testing. dw MD Stephen Kim Ryan H MD R2 Dec 24, 2016 11:38
[2016-12-24] MEDS: IBUPROFEN 600 MG TAB PO PRN (21:53)
[2016-12-25] MEDS: IBUPROFEN 600 MG TAB PO PRN (06:51)
[2016-12-25] MEDS: ACETAMINOPHEN 325 MG TAB PO PRN (06:52)
[2016-12-25] MEDS ORDERED: IBUP-232 PO (07:07)
[2016-12-25] MEDS ORDERED: SENN1TAB PO (07:07)
--- NOTE | 2016-12-25 07:07 | HHI.DCPOC ---
Discharge Care Plan Diagnosis: (1) (spontaneous vaginal delivery) Report Symptoms to Your Doctor -Temperature above 100.5 degrees -Redness, of incision or excessive or foul smelling drainage -Unusual pain or calf pain -Increased vaginal bleeding -Painful or difficulty urinating -Feelings of extreme sadness or anxiety after 2 weeks Goals to Promote Your Health * To prevent worsening of your condition and complications * To maintain your health at the optimal level Directions to Meet Your Goals Take your medications as prescribed Follow your dietary instruction Follow activity as directed Ensure plenty of rest for recovery Drink fluids for hydration Keep your appointments as scheduled Take your immunizations and boosters as scheduled If your symptoms worsen call your PCP, if no PCP go to Urgent Care Center or Emergency Room Smoking is Dangerous to Your Health. Avoid second hand smoke Call the 24-hour crisis hotline for domestic abuse at Shiraz Mitchell MD R2 Dec 25, 2016 07:07
--- NOTE | 2016-12-25 08:54 | HHI.OB ---
Subjective Post Day: 2 Remarks Pt seen and examined this morning. day # 2 AFVSS overnight. Decreased lochia. Denies dysuria. No breast tenderness. She is feeding the baby via breast. Appetite good. No nausea or vomiting. Patient endorses bowel movements. Ambulating well. Denies calf pain or shortness of breath. Otherwise , she is doing well this morning and has no other concerns. Objective Vitals/I&O Vital Signs Date Time Temp Pulse Resp B/P (MAP) Pulse Ox O2 Delivery O2 Flow Rate FiO2 12/24/16 21:45 80 109/69 (82) 12/24/16 21:45 97.9 16 98 Objective Remarks GENERAL: Well-nourished, well-developed patient. CARDIOVASCULAR: Regular rate and rhythm without murmurs, gallops, or rubs. RESPIRATORY: Breath sounds equal bilaterally. No accessory muscle use. ABDOMEN/GI: Abdomen soft, non-tender. Fundus: Firm, non-tender at umbilicus. GENITOURINARY: Light to moderate bleeding. EXTREMITIES: No cyanosis or edema, non-tender, without signs of DVT. Medications and IVs Current Medications Medications (Trade) Dose Ordered Sig/Justice Route Start Time Stop Time Status Last Admin Lactated Ringer's 1,000 ml @ 125 mls/hr Q8H IV 12/23/16 19:30 12/23/16 20:46 Lactated Ringer's 1,000 ml @ 3,000 mls/hr BOLUS PRN IV 12/23/16 19:30 12/23/16 20:39 Sodium Chloride 500 ml @ 1,000 mls/hr BOLUS PRN IV 12/23/16 19:30 Sodium Chloride 1,000 ml @ 100 mls/hr Q10H PRN IV 12/23/16 19:30 (Xylocaine 1% Inj (50 ml)) 0.1 ml UNSCH X1 PRN I-DERMAL 12/23/16 19:30 01/06/17 19:29 (Bicitra Liq) 30 ml SHIPPING MANAGER PO 12/23/16 19:30 12/26/16 19:29 (Zofran Inj) 4 mg Q6H PRN IV 12/23/16 19:30 (fentaNYL INJ) 50 mcg Q1H PRN IV PUSH 12/23/16 19:30 (fentaNYL INJ) 100 mcg Q1H PRN IV PUSH 12/23/16 19:30 (Xylocaine 1% Inj (50 ml)) 10 ml UNSCH X1 PRN INFIL 12/23/16 19:30 01/06/17 19:29 (Muri-Lube Oil) 10 ml UNSCH PRN TOPICAL 12/23/16 19:30 Fentanyl/ Bupivacaine HCl 100 ml @ 0 mls/hr TITRATE EPIDURAL 12/23/16 20:30 Oxytocin 500 ml @ 0 mls/hr TITRATE IV 12/23/16 20:30 12/23/16 20:45 (NS Flush) 2 ml BID IV FLUSH 12/24/16 09:00 (NS Flush) 2 ml UNSCH PRN IV FLUSH 12/23/16 23:45 (Tylenol) 650 mg Q4H PRN PO 12/23/16 23:45 12/25/16 06:52 (Motrin) 600 mg Q6H PRN PO 12/23/16 23:45 12/25/16 06:51 (Percocet 5-325 Mg) 1 tab Q4H PRN PO 12/23/16 23:45 (Percocet 5-325 Mg) 2 tab Q4H PRN PO 12/23/16 23:45 (Americaine 20% Top Spr) 1 spray Q4H PRN TOPICAL 12/23/16 23:45 12/24/16 07:28 (Tucks Pads) 1 applic QID PRN TOPICAL 12/23/16 23:45 12/24/16 07:28 (Lorena-Colace) 2 tab Q12H PRN PO 12/23/16 23:45 12/25/16 06:52 (Ambien) 5 mg HS PRN PO 12/23/16 23:45 (Mag-Al Plus Susp Liq) 15 ml Q8H PRN PO 12/23/16 23:45 (Zofran Odt) 4 mg Q6H PRN PO 12/23/16 23:45 Assessment/Plan Problem List: (1) ICD Codes: Z33.1 - state, incidental Status: Acute Qualifiers: Qualified Codes: Z3A.40 - 40 weeks gestation of Assessment and Plan 26 y/o female who is day # 2 s/p . -Continue routine care. -Percocet and Motrin PRN pain. -Encouraged OOB. Advised pelvic rest for 6 wks. -Re: ctrl, she would like to discuss her options at her follow-up OB appointment. -Anticipate discharge today with baby. MD Stephen Jnoas Dr[address]Shiraz James MD R2 Dec 25, 2016 08:54
== END 2016-12-25 10:09 | disposition home or self-care (01) | DRG 775 ==
LOC: H2EB 19:01 → H1EA 12-24 01:39
PROVIDERS: ADMIT Obstetrics & Gynecology Maternal & Fetal Medicine; ATTEND Obstetrics & Gynecology Maternal & Fetal Medicine
PROC: 10E0XZZ Delivery of Products of Conception, External Approach (ICD-10-PCS; principal; 2016-12-23)
PROC: 0HQ9XZZ Repair Perineum Skin, External Approach (ICD-10-PCS; 2016-12-23)
PROC: 10H07YZ Insertion of Other Device into Products of Conception, Via Natural or Artificial Opening (ICD-10-PCS; 2016-12-23)
DX: O70.0 First degree perineal laceration during delivery (principal); Z37.0 Single live birth; Z3A.40 40 weeks gestation of pregnancy
CPT/HCPCS: 59025; 85025; 86900; 86901; J2590; J7120

== ENCOUNTER 2017-08-04 08:14 | Emergency (ER) | payer SELFPAY ==
[~2017-08-04] VITALS: Ht 162.6 cm; Wt 66.0 kg
[~2017-08-04 08:14] MED LIST changes: -DIPHTH/TETANUS/ACEL PERTUSSIS (BOOSTER) 0.5 ML VIAL/PFS IM ONE; +IBUP-232 PO; -MACR100C2 PO; -MEASLES, MUMPS, RUBELLA VACCINE 0.5 ML VIAL SQ ONE; +SENN1TAB PO
[2017-08-04 08:16] VITALS: BP 127/68; PULSE 96; RESP 18; TEMP 97.3; O2SAT 100
--- NOTE | 2017-08-04 08:44 | PD ---
HPI Chief Complaint: GI Complaint Time Seen by Provider: 08:32 Travel History International Travel<30 days: No Contact w/Intl Traveler<30days: No Traveled to known affect area: No History of Present Illness HPI The patient was seen and examined in the presence of the nurse. This patient complains of bright red blood per rectum. Duration 3 days. Severity of the bleeding is mild. No abdominal pain or presyncopal symptoms. No prior history of GI problems. Takes no blood thinners. No alleviating factors. No exacerbating factors. PFSH Past Medical History Asthma: Yes Anxiety: Yes Depression: Yes Cancer: No Cardiovascular Problems: No Diabetes: No Diminished Hearing: No Endocrine: No Headaches: Yes Immune Disorder: No Musculoskeletal: No Psychiatric: No Reproductive: No Immunizations Current: Yes Sickle Cell Disease: No ?: Unknown LMP: 06/28/17 Menopausal: No : 2 Para: 1 Miscarriage: 1 Past Surgical History Surgical History: No Previous Surgery Social History Alcohol Use: No Tobacco Use: Yes Substance Use: No Allergies-Medications (Allergen,Severity, Reaction): Coded Allergies: No Known Allergies (Verified , 08/07/11) Reported Meds & Prescriptions Reported Meds & Active Scripts Active No Active Prescriptions or Reported Medications Review of Systems General / Constitutional: No: Fever Eyes: No: Visual changes HENT: No: Headaches Cardiovascular: No: Chest Pain or Discomfort Respiratory: No: Shortness of Breath Gastrointestinal: Positive: Hematochezia, No: Abdominal Pain Genitourinary: No: Dysuria Musculoskeletal: No: Pain Skin: No Rash Neurologic: No: Weakness Psychiatric: No: Depression Endocrine: No: Polydipsia Hematologic/Lymphatic: No: Easy Bruising Physical Exam Narrative GENERAL: Well-nourished, well-developed patient in no apparent distress. SKIN: Focused skin assessment reveals no rash and nodules. Skin is Warm and dry. HEAD: Atraumatic. Normocephalic. EYES: Pupils equal and round. No scleral icterus. No injection or drainage. ENT: No nasal bleeding or discharge. Mucous membranes pink and moist. NECK: Trachea midline. No JVD. CARDIOVASCULAR: Regular rate and rhythm. No murmur appreciated. RESPIRATORY: No accessory muscle use. Clear to auscultation. Breath sounds equal bilaterally. GASTROINTESTINAL: Abdomen soft, non-tender, nondistended. Hepatic and splenic margins not palpable. MUSCULOSKELETAL: No obvious deformities. No clubbing. No cyanosis. No edema. NEUROLOGICAL: Awake and alert. No obvious cranial nerve deficits. Motor grossly within normal limits. Normal speech. PSYCHIATRIC: Appropriate mood and affect; insight and judgment normal. Rectal: No fissure or external hemorrhoid noted Data Data Last Documented VS Vital Signs Date Time Temp Pulse Resp B/P (MAP) Pulse Ox O2 Delivery O2 Flow Rate FiO2 08/04/17 08:16 97.3 96 18 127/68 (87) 100 Orders Orders Complete Blood Count With Diff (08/04/17 08:41) Basic Metabolic Panel (Bmp) (08/04/17 08:41) Ed Urine Pregnancytest Poc (08/04/17 08:41) Labs Laboratory Tests Test 08/04/17 08:54 White Blood Count 7.9 TH/MM3 Red Blood Count 4.96 MIL/MM3 Hemoglobin 15.7 GM/DL Hematocrit 45.5 % Mean Corpuscular Volume 91.7 FL Mean Corpuscular Hemoglobin 31.6 PG Mean Corpuscular Hemoglobin Concent 34.5 % Red Cell Distribution Width 12.8 % Platelet Count 252 TH/MM3 Mean Platelet Volume 8.5 FL Neutrophils (%) (Auto) 65.7 % Lymphocytes (%) (Auto) 21.8 % Monocytes (%) (Auto) 9.1 % Eosinophils (%) (Auto) 2.9 % Basophils (%) (Auto) 0.5 % Neutrophils # (Auto) 5.2 TH/MM3 Lymphocytes # (Auto) 1.7 TH/MM3 Monocytes # (Auto) 0.7 TH/MM3 Eosinophils # (Auto) 0.2 TH/MM3 Basophils # (Auto) 0.0 TH/MM3 CBC Comment DIFF FINAL Differential Comment Blood Urea Nitrogen 8 MG/DL Creatinine 0.81 MG/DL Random Glucose 88 MG/DL Calcium Level 9.0 MG/DL Sodium Level 141 MEQ/L Potassium Level 3.7 MEQ/L Chloride Level 110 MEQ/L Carbon Dioxide Level 24.0 MEQ/L Anion Gap 7 MEQ/L Estimat Glomerular Filtration Rate 85 ML/MIN [facility] Medical Decision Making Medical Screen Exam Complete: Yes Emergency Medical Condition: Yes Medical Record Reviewed: Yes Differential Diagnosis Internal hemorrhoid, AV malformation, polyp Narrative Course I have reviewed the patient's electronic medical record. Urine is negative CBC is normal Metabolic profile is normal Patient has some rectal bleeding but very stable for outpatient GI follow-up. She takes a lot of ibuprofen I have asked her to avoid Diagnosis Primary Impression: Rectal bleeding Additional Instructions: Follow-up with GI physician Stop ibuprofen Med/Other Pt SpecificInfo: Other Scripts No Active Prescriptions or Reported Meds Disposition: 01 DISCHARGE HOME Condition: Stable Skip Maynard MD Aug 04, 2017 08:44
[2017-08-04 09:14] LABS: AUTOMATED NEUTROPHIL # 5.2 TH/MM3 (1.8-7.7); BASOPHIL % 0.5 % (0.0-2.0); EOSINOPHIL # 0.2 TH/MM3 (0-0.4); EOSINOPHIL % 2.9 % (0.0-4.0); HEMATOCRIT 45.5 % (35.0-46.0); HEMOGLOBIN 15.7 GM/DL (11.6-15.3); LYMPH % 21.8 % (9.0-44.0); LYMPHOCYTE # 1.7 TH/MM3 (1.0-4.8); MEAN CELL VOLUME 91.7 FL (80.0-100.0); MEAN CORPUSCULAR HEMOGLOBIN 31.6 PG (27.0-34.0); MEAN CORPUSCULAR HGB CONC 34.5 % (32.0-36.0); MEAN PLATELET VOLUME 8.5 FL (7.0-11.0); MONO % 9.1 % (0.0-8.0); MONOCYTE # 0.7 TH/MM3 (0-0.9); NEUT % 65.7 % (16.0-70.0); PLATELET COUNT 252 TH/MM3 (150-450); RED BLOOD COUNT 4.96 MIL/MM3 (4.00-5.30); RED CELL DISTRIBUTION WIDTH 12.8 % (11.6-17.2); WHITE BLOOD COUNT 7.9 TH/MM3 (4.0-11.0)
[2017-08-04 09:29] LABS: CREATININE 0.81 MG/DL (0.50-1.00)
== END 2017-08-04 13:06 | disposition home or self-care (01) ==
LOC: NEPC 08:14
DX: K62.5 Hemorrhage of anus and rectum (principal); J45.909 Unspecified asthma, uncomplicated; F32.9 Major depressive disorder, single episode, unspecified; Z72.0 Tobacco use
CPT/HCPCS: 80048; 84703; 85025; 99283